=== PATIENT | male | born 1960 | race Caucasian/White ===

== ENCOUNTER 2020-03-10 07:41 | Outpatient (CLI) | payer OTHER, SELFPAY ==
[2020-03-10 08:15] LABS: Basophils % 0.6 %; Eosinophils # 0.2 10^3/uL (0.0-0.8); Eosinophils % 2.2 %; Hematocrit 43.8 % (42.0-52.0); Lymphocytes # 1.6 10^3/uL (0.8-4.8); Lymphocytes % 23.9 %; Mean Corpuscular HGB Conc 29.7 g/dL (30.0-36.0); Mean Corpuscular Hemoglobin 25.2 pg (28.0-34.0); Mean Platelet Volume 10.6 fL (7.4-10.4); Monocytes # 0.6 10^3/uL (0.2-0.9); Monocytes % 9.2 %; Neutrophils # 4.35 10^3/uL (1.8-7.7); Neutrophils % 63.5 %; Nucleated Red Blood Cells % 0 %; Platelet Count 223 10^3/cmm (130-400); Red Blood Count 5.15 10^6/uL (4.1-5.3); Red Cell Distribution Width 14.9 % (12.1-15.1); White Blood Count 6.9 10^3/uL (4.0-10.0)
[2020-03-10 08:55] LABS: Alanine Aminotransferase 33 U/L (0-41); Albumin Level 4.3 g/dL (3.5-5.2); Alkaline Phosphatase 93 IU/L (40-130); Anion Gap 12.2 (5-19); Aspartate Amino Transferase 27 U/L (0-40); Blood Urea Nitrogen 9 mg/dL (8-23); Calcium 9.3 mg/dL (8.5-10.5); Carbon Dioxide 26 mmol/L (22-29); Chloride 100 mmol/L (98-107); Globulin 2.9 g/dL (1.3-4.6); Glomerular Filtration Rate 98.3 mL/min (90-130); Glucose 134 mg/dL (65-115); Osmolality Calculated 276 mOsm/kg (285-295); Potassium 4.2 mmol/L (3.5-5.1); Sodium 134 mmol/L (136-145); Total Bilirubin 0.3 mg/dL (0.15-1.2); Total Protein 7.2 g/dL (6.6-8.7)
--- NOTE | 2020-03-11 07:52 | ONC FU_ITS ---
Dr. Badillo Patient Follow-Up Note Patient: Alvarez Badillo Unit #: [id number]: 1960 Dicatated By: Caleb Badillo M.D.Date of Visit:Mar 10, 2020 Onc Med Follow-up/Prog Note Chief Complaint: Elevated blood count. 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 In August 2018 he had a regularly scheduled follow-up visit with Dr. Mendez. His laboratory studies from 08/27/2018 showed significantly elevated hemoglobin at 19.8 g with hematocrit elevated at 58.4%. His white blood cell count was normal at 8400 and the platelet count was normal at 180,000. His chemistry studies showed significantly elevated total and LDL cholesterol levels at 268 mg/dL and 195 mg/dL respectively. Renal function was normal with creatinine 0.83 mg/dL. I had seen him initially on 09/19/2018. His CBC showed significantly elevated hemoglobin at 19.0 g with hematocrit 55.7%. The white blood cell count was 7900 and the platelet count was 167,000. His comprehensive metabolic profile was unremarkable. His erythropoietin level was in the low-normal range at 4.8 mIU/mL. The JAK2 V617F and the JAK2 exon 12 mutations were not detected. The findings were consistent with secondary polycythemia, though was uncertain what extent the elevated blood count may been due to the smoking/lung disease or to decreased plasma volume. However, with that degree of elevation, he did start a phlebotomy regimen. He was then seen for a follow-up visit on 01/27/2019. At that point his hemoglobin was down to 15.6 g with hematocrit 44.9%, and I had recommended that he just continue on observation/expectant management. During this time he also had been undergoing cardiac evaluation for hypertrophic obstructive cardiomyopathy. He ultimately underwent surgery for it at [facility] in July 2019. His other medical illnesses include hypertension, hyperlipidemia, GERD, and obstructive sleep apnea. He has a significant smoking history, which includes smoking for a total of 49 years and previously up to 3 packs of cigarettes daily or more. He had cut down, and he quit smoking as of November 2018. INTERIM HISTORY: He has been feeling pretty good generally. He still gets short of breath, and his activity tolerance remains limited. However, he has had significant improvement since his heart surgery in July. His ECOG score is 1. His appetite is the same. He has not had fever. He had been having night sweating on a regular basis, but that recently stopped. He has occasional cough associated with episodic itchy throat and voice change. He still has been having some muscle pain in the chest area since the surgery. He otherwise does not complain of chest pain. He has no GI complaints other than his omeprazole does not seem to be working as well as it used to. Bladder function remains adequate, he does report having nocturia. He has some arthritis pain in his hands and wrists, and he also has back pain. He has some numbness in his right hand. Medications: amLODIPine Besylate 1 Tablet (of 5 mg) Oral every am, Aspirin 1 Tablet (of 81 mg) Oral daily, Cholecalciferol 1 Tablet (of 2000 Units) Oral daily, Losartan Potassium 1 Tablet (of 100 mg) Oral at bedtime, Metoprolol Succinate ER 1 Tablet (of 100 mg) Tablet SR 24 HR Oral every am, Omeprazole 1 Capsule (of 20 mg) Capsule Delayed Release Oral daily Allergies: Lisinopril, Lovastatin, and Simvastatin. Review of Systems: Constitutional - He has had some improvement in his energy and activity tolerance since his heart surgery. His appetite is good and weight is up 11 pounds from last visit. No fevers. He was having night sweats up until a few weeks ago. This has since improved. ECOG score is 1, ENMT - He has seasonal allergies. He has a persistent runny nose. No mouth sores. No sore throat or difficulty swallowing, but he has occasional episodes of his throat getting itchy with associated voice change, Hematologic/Lymphatic - No abnormal bruising or bleeding, Respiratory - He still has shortness of breath, but his breathing has been better since the surgery. He has cough with the itchy throat episodes. He still has some pleuritic pain following his surgery. No hemoptysis, Cardiovascular - No angina pain. No palpitations. He had a cardiac surgery back in July, Gastrointestinal - No nausea or vomiting. His acid reflux has not been as well controlled with the omeprazole. No diarrhea or constipation. No blood in the stool or black stools, Genitourinary (M) - No dysuria or hematuria. He has urinary frequency at night. No urgency or incontinence, Musculoskeletal - He has some joint pain in the hands and he has some arthritis in his back, Integumentary - No skin complications, Neurologic - No headache or dizziness. He has intermittent numbness in his right hand. No other focal neurologic symptoms, Psychiatric - No anxiety or depression. No insomnia. Vital Signs: Performed on Mar 10, 2020 09:30 Height - 71.00 in Weight - 260.4 lbs (HIGH) BSA - 2.36 sq.m BMI - 36.32 (HIGH) Temperature - 98.3 F (LOW) Pulse - 69 /min Respiration - 24 /min BP - 140/90 mm(hg) O2 Sat - 97 % Pain - 0 Physical Examination: Constitutional - He looks pretty good generally, Eyes - Sclerae nonicteric. Conjunctivae clear, ENMT - No lesions noted in the oral cavity, Hematologic/Lymphatic - No cervical, clavicular, or axillary adenopathy, Respiratory - Lungs are clear with diminished air movement bilaterally, Cardiovascular - Heart tones are distant. The rhythm appears regular. There is a II/ systolic murmur. There is no gallop or rub noted, Abdomen - Distended. Liver and spleen are not enlarged. There is no abdominal mass or ascites noted and there is no inguinal adenopathy, Extremities - No edema, Neurologic - No focal neurologic deficits noted. Lab/Imaging: Test performed on Mar 10, 2020 07:55 Sodium 134 mmol/L Potassium 4.2 mmol/L Chloride 100 mmol/L CO2 26 mmol/L Anion Gap 12.2 BUN 9 mg/dL Creatinine 0.8 mg/dL Cr Clearance (Est) 162.00 mL/min eGFR 98.3 mL/min Glucose 134 mg/dL Calcium 9.3 mg/dL Protein, Total 7.2 g/dL Albumin 4.3 g/dL Globulin 2.9 g/dL Bilirubin, Total 0.3 mg/dL ALT (SGPT) 33 U/L AST (SGOT) 27 U/L Alkaline Phosphatase 93 IU/L WBC 6.9 10 3/uL RBC 5.15 10 6/uL HGB 13.0 g/dL HCT 43.8 % MCV 85.0 fL MCH 25.2 pg MCHC 29.7 g/dL RDW 14.9 % Platelet Count 223 10 3/cmm MPV 10.6 fL Neutrophils 4.35 10 3/uL Lymphocytes 1.6 10 3/uL Monocytes 0.6 10 3/uL Eosinophils 0.2 10 3/uL Basophils 0.0 10 3/uL Neutrophil % 63.5 % Lymphocyte % 23.9 % Monocyte % 9.2 % Eosinophil % 2.2 % Basophils % 0.6 % NRBC % 0 % Impression: 1. Patient with significantly elevated hemoglobin/hematocrit levels. His laboratory studies appear consistent with secondary polycythemia, as his clonal studies were negative. 2. He has been found to have hypertrophic obstructive cardiomyopathy. His other medical illnesses include: 3. Hypertension. 4. Hyperlipidemia. 5. GERD. 6. Obstructive sleep apnea. 7. By clinical evaluation he likely does have some component of COPD. 8. Nicotine dependence (cigarettes). He initially began on a phlebotomy program, and his blood counts came down to acceptable levels. During that time, he completed cardiac evaluation for the hypertrophic obstructive cardiomyopathy, and he ultimately underwent surgery for it at [facility] in July 2019. He has had significant improvement in his performance status since the surgery, and his hemoglobin/hematocrit levels are now in normal range. As such, it does appear likely that his cardiac disease was a contributing factor to the secondary polycythemia. Plan: He can be followed on observation/expectant management. At this point he will continue his regular follow-up with Dr. Mendez at the [place]. I will plan to see him again only as needed. Signed By: Caleb Badillo M.D. <<Signature on File>>
== END 2020-03-10 07:42 | disposition home or self-care (01) ==
LOC: ONCMED 07:46
PROVIDERS: PCP Emergency Medicine Emergency Medical Services; Visit Provider Internal Medicine Medical Oncology
DX: D75.1 Secondary polycythemia (principal); I10 Essential (primary) hypertension; E78.5 Hyperlipidemia, unspecified; K21.9 Gastro-esophageal reflux disease without esophagitis; G47.33 Obstructive sleep apnea (adult) (pediatric); J44.9 Chronic obstructive pulmonary disease, unspecified; F17.210 Nicotine dependence, cigarettes, uncomplicated
CPT/HCPCS: 80053; 85025; G0463

== ENCOUNTER 2023-08-22 08:58 | Outpatient (CLI) | payer OTHER, SELFPAY ==
--- NOTE | 2023-08-22 09:03 | USCV_ITS ---
Justino Alvarez Age: 63 Gender: M : 1960 Exam Date: 08/22/2023 09:13 Ordering Phys: Jayy Mendez DO Technologist: RODRIGO [place]am Location: [facility] [place] [facility] [place] Indication: AAA SCREENING HISTORY: Diameter (cm) AP x Transverse x Length Velocity (cm/s) Waveform Prox Aorta: 2.47 x 2.93 x 83.00 Triphasic Mid Aorta: 2.01 x 2.36 x 85.10 Triphasic Distal Aorta: 2.18 x 2.17 x 53.10 Triphasic Right Iliac Prox: 0.92 x 1.06 x 94.50 Triphasic Left Iliac Prox: 0.92 x 1.27 x 104.20 Triphasic Stent Prox Landing x x Aneurysmal Sac Max x x Lt Lat Sac Dim Rt Lat Sac Dim Stent Dist Landing x x Right Iliac Stent x x Left Iliac Stent x x Right Renal Art Left Renal Art FINDINGS: Comparison: none available. No evidence of abdominal aortic or bilateral iliac aneurysm. Ectatic abdominal aorta with evidence of atherosclerotic plaque noted. CONCLUSIONS No evidence of abdominal aortic or bilateral iliac aneurysm. Dr. Mona Galvan DO (Electronically Signed) Final Date: 22 August 2023 09:35 S
== END 2023-08-22 08:59 | disposition home or self-care (01) ==
LOC: RAD 09:00
PROVIDERS: PCP Emergency Medicine Emergency Medical Services; Visit Provider Emergency Medicine Emergency Medical Services
DX: Z13.6 Encounter for screening for cardiovascular disorders (principal)
CPT/HCPCS: 76706

== ENCOUNTER → 2024-08-14 10:35 | Outpatient (BNVA) | payer OTHER, SELFPAY | PROVIDERS: PCP Emergency Medicine Emergency Medical Services; Visit Provider Student in an Organized Health Care Education/Training Program | DX: K82.9 Disease of gallbladder, unspecified | CPT/HCPCS: 36415; 80053; 85025; 99204 ==

== ENCOUNTER 2024-08-21 07:54 | Outpatient (CLI) | payer OTHER, SELFPAY ==
--- NOTE | 2024-08-21 08:15 | US_ITS ---
WS: [id number] RIGHT UPPER QUADRANT ULTRASOUND HISTORY: gall stones COMPARISON: None available. Liver: 17.3 cm in length. Liver is top normal size. Hepatic steatosis. No mass identified but the ent shailesh liver is not well visualized. Portal Vein: Normal hepatopetal flow with monophasic waveform. Gallbladder: Normally distended gallbladder with numerous large stones. No pericholecystic fluid. CBD: 0.7 cm Pancreas: Completely obscured by bowel gas. Right kidney: 11.2 cm in length. Normal size and echogenicity. No hydronephrosis or mass. Aorta and IVC: Unremarkable abdominal aorta and IVC. No ascites. US/US gall bladder 92574 IMPRESSION: 1. Cholelithiasis without evidence for acute cholecystitis. Numerous large sto linsey are present within the gallbladder. 2. Liver is top normal size with hepatic steatosis.
== END 2024-08-21 07:55 | disposition home or self-care (01) ==
LOC: RAD 07:55
PROVIDERS: PCP Nurse Practitioner; Visit Provider Student in an Organized Health Care Education/Training Program
DX: K80.20 Calculus of gallbladder without cholecystitis without obstruction (principal); K76.0 Fatty (change of) liver, not elsewhere classified
CPT/HCPCS: 76705

== ENCOUNTER → 2024-08-25 11:16 | Outpatient (BNVA) | payer OTHER, SELFPAY | PROVIDERS: PCP Nurse Practitioner; Visit Provider Student in an Organized Health Care Education/Training Program | DX: Z09 Encounter for follow-up examination after completed treatment for conditions other than malignant neoplasm (principal); K80.50 Calculus of bile duct without cholangitis or cholecystitis without obstruction | CPT/HCPCS: 99214 ==

== ENCOUNTER → 2024-09-17 09:55 | Day surgery (SDC) | payer OTHER, SELFPAY ==
[2024-09-17] VITALS (12 sets, daily range): BP systolic 112–142; BP diastolic 63–96; PULSE 56–65; RESP 3–22; TEMP 36.1–36.6; O2SAT 91–96; BMI 30.5
[2024-09-17] MEDS: sodium chloride 0.9% 1,000 ML 30 ML IV (10:26)
--- NOTE | 2024-09-17 10:39 | W.PM.OPSUD ---
Surgery/Procedure H&P Update DATE OF PROCEDURE: September 17, 2024 DATE H&P PERFORMED: 08/25/24 H&P UPDATE INFORMATION: I have reviewed H&P completed within last 30 days, I have examined patient prior to procedure and No changes to prior documentation PLANNED PROCEDURE: Operation Date: 09/17/24 11:35 Proposed Procedures p [place] [address], K80.50(Not Applicable) - Uriel Jordan MD
--- NOTE | 2024-09-17 10:42 | ANES.PREANE2 ---
Pre-Anesthetic Assessment Height/Weight: Height 6 ft Weight 225 lb Temp Pulse Resp BP Pulse Ox O2 Del Method 97.8 F 65 18 125/83 95 Room Air 09/17/24 10:35 09/17/24 10:35 09/17/24 10:35 09/17/24 10:35 09/17/24 10:35 09/17/24 10:36 Preop Diagnosis: Biliary colic Operation Date: 09/17/24 11:35 Proposed Procedures p Laparoscopic [place] [id number], K80.50(Not Applicable) - Uriel Jordan MD Was Beta Sj taken within 24 hours: N/A Was Clonidine taken within 24 hours: N/A Last intake: Intake Last Liquid Date 09/16/24 Last Liquid Time 19:00 Last Solid Date 09/16/24 Last Solid Time 21:00 Social Tobacco and No alcohol Exam alert, oriented x 3, clear to auscultation bilaterally and regular rate & rhythm Airway Submandibular: within normal limits Cervical ROM: within normal limits Mallampati: Class II Comments: Comments: Upper dentures, few missing bottom teeth, denies any loose Anesthetic Plan ASA status: 3 Anesthesia: General Other: No prior issues with anesthesia NPO since yesterday History of hypertension on amlodipine and metoprolol. BB taken today. 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 Plan for GETA Medications/Allergies Home Medications ?Medication ?Instructions ?Recorded ?Confirmed ?Last Taken ?Type aspirin 81 mg tablet,delayed 81 mg PO DAILY 10/22/19 09/16/24 09/16/24 History release (Urban Low Dose Aspirin) metoprolol tartrate 100 mg tablet 100 mg PO DAILY 10/22/19 09/16/24 09/17/24 History omeprazole 20 mg capsule,delayed 20 mg PO DAILY 10/22/19 09/16/24 09/16/24 History release Gardiner 3 2,000 mg PO DAILY 08/25/24 09/16/24 09/16/24 History amlodipine 10 mg tablet 10 mg PO DAILY 08/25/24 09/16/24 09/17/24 History folic acid 1 mg tablet 5 mg PO DAILY 08/25/24 09/16/24 09/16/24 History Allergies Allergy/AdvReac Type Severity Reaction Status Date / Time lisinopril Allergy Unknown cough Verified 09/17/24 10:32 lovastatin Allergy Unknown pain Verified 09/17/24 10:32 simvastatin Allergy Unknown pain Verified 09/17/24 10:32 Current Medications Generic Name Dose Route Start Last Admin Trade Name Freq PRN Reason Stop Dose Admin Sodium Chloride 1,000 mls @ 30 mls/hr 09/17/24 10:15 09/17/24 10:26 Sodium Chloride 0.9% IV 09/18/24 10:14 30 mls/hr .Q24H RANDY Administration PFSH Anesthesia Medical History (Updated 08/25/24 @ 12:00 by Uriel Jordan MD) SOB (shortness of breath) Hypertension GERD (gastroesophageal reflux disease) Polycythemia Hyperlipidemia Hypertrophic obstructive cardiomyopathy Surgical History H/O circumcision Hx of tonsillectomy H/O arthroscopic knee surgery Family History Other Diabetes Hypertension Stroke Social History (Updated 08/25/24 @ 11:29 by Roselyn Renee) Smoking and tobacco/nicotine status: current every day tobacco/nicotine user Alcohol intake: never Substance/Drug Use: never Data Anesthesia Cardiac Studies: No Data to Display
[2024-09-17] MEDS: ceFAZolin 2,000 mg SDV 2000 MG IVP (10:58)
[2024-09-17] MEDS: lidocaine-epi 1% 20 mL INJ 10 ML INJECTION (11:26)
--- NOTE | 2024-09-17 12:15 | P.OP_ITS ---
Operative Report Date of procedure: September 17, 2024 Pre-op diagnosis: Symptomatic cholelithiasis Post-op diagnosis: Chronic cholecystitis Post-op findings: Gallbladder with inflammatory rind Procedure done: Laparoscopic cholecystectomy Implants: N/A Specimens removed/disposition: Gallbladder sent to pathology Pathology: Gallbladder sent to pathology Surgeon: Uriel Jordan MD Brass Wind Instruments Tube Bender: N/A Anesthesia: General Estimated blood loss (mL): 10 Complications: N/A Findings: Chronically inflamed gallbladder with inflammatory Condition: stable Disposition: same day Brief History: 64-year-old male who presented with biliary colic. Discussed risk and benefits and patient agreed to proceed with laparoscopic cholecystectomy possible open. Procedure: I discussed the risks and benefits of laparoscopic cholecystectomy, and obtained consent prior to proceeding to the operating room. SCDs were utilized. Prophylactic antibiotics were administered. General anesthesia was induced. The patient was placed supine, and she was prepped and draped in the usual sterile fashion. Insufflation to 15mmHg was achieved using a Veress needle at Chris's point. A 12mm optiview trocar was placed at the umbilicus under direct visualization. The left upper quadrant was inspected, and no injuries were noted. Two 5mm ports were placed in the right upper quadrant, and a 12mm working port was placed in the epigastrium. The gallbladder was then retracted cephalad through the lateral RUQ port, and the infundibulum grabbed through the medial RUQ port and retracted laterally. The gallbladder was inflammed and thus c onsistent with chronic cholecystitis. It had an inflammatory rind. I proceeded to score the peritoneum over the medial aspect of the gallbladder using a laparoscopic hook with electrocautery. Then the infundibulum was retracted medially in order to score the peritoneum over the lateral aspect of the galbladder. Using a combination of energy and blunt dissection with the [place] and a Kittner dissector, the cystic artery and cystic duct were dissected. I then proceeded to dissect the cystic plate in order to to achieve the critical view of safety. The cystic artery and the cystic duct were clipped three times (leaving two clips on the proximal end of both structures). I then proceeded to dissect the gallbladder off the liver using hook electrocautery. The specimen was placed in an endocatch bag and retrieved from the abdomen through the port on the epigastrium. I then irrigated the gallbladder fossa with 2L of NS to confirm adequate hemostasis and the absence of any bile leaks. The gallbladder fossa was then cauterized again. Prior to ending the laparoscopic portion, I examined the rest of the abdomen and did not find any abnormalities or injuries. The abdomen was then desufflated, and the 12mm port at the umbilicus was closed using 0 vicryl on a UR needle after irrigating copiously. Skin was closed using 4-0 monocryl and surgical glue. The patient woke up from anesthesia and t ransferred to PACU without any complications.
[2024-09-17] MEDS: HYDROMORPHONE HCL 0.5 MG/0.5 ML INJ (12:29)
--- NOTE | 2024-09-17 12:37 | PC.NURSE ---
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
[2024-09-17] MEDS: oxyCODONE 5 mg IR Tab/Cap PO (13:04)
[2024-09-17] MEDS: fentaNYL 50 mcg/mL INJ 2mL IVP (13:09)
--- NOTE | 2024-09-17 14:01 | ANE.PACU2 ---
Inpatient post-anesthesia follow up: Airway intact: Yes Vital signs: Temperature 97.0 F Pulse Rate 60 Respiratory Rate 16 Blood Pressure 120/66 Pulse Oximetry 92 Oxygen Delivery Me thod Nasal Cannula Oxygen Flow Rate 3 Fraction of Inspir ed Oxygen Hydration adequate: Yes Nausea and vomiting: No Pain level: 2 Mental status: Baseline
[2024-09-17 15:47] LABS: Hepatitis A Antibody IgM Non-Reactive (Nonreactive); Hepatitis B Core AB, Total Non-Reactive (Nonreactive); Hepatitis B Surface AB 6.2 (11.5-1000); Hepatitis B Surface Antigen Non-Reactive (Nonreactive); Hepatitis C Virus Antibody Non-Reactive (Nonreactive)
[2024-09-17 15:59] LABS: HIV 1 & 2 Antibody Non-Reactive (Non-Reactiv); HIV 1 & 2 Antigen Non-Reactive (Non-Reactiv)
== END | disposition home or self-care (01) ==
PROVIDERS: Family Medicine; PCP Nurse Practitioner; Visit Provider Student in an Organized Health Care Education/Training Program
PROC: 0FT44ZZ Resection of Gallbladder, Percutaneous Endoscopic Approach (ICD-10-PCS; CPT 47562; principal; 2024-09-17 11:35)
DX: K80.10 Calculus of gallbladder with chronic cholecystitis without obstruction (principal); I10 Essential (primary) hypertension; F17.200 Nicotine dependence, unspecified, uncomplicated; E78.5 Hyperlipidemia, unspecified
CPT/HCPCS: 47562; 86705; 86706; 86709; 86803; 87340; 87806; 88304; A4216; J0690; J1171; J2250; J2704; J2710; J3010; J3490; J7030

== ENCOUNTER 2024-09-23 11:43 | Emergency (ER) | payer OTHER, MEDICARE, SELFPAY ==
[2024-09-23 12:05] VITALS: RESP 36; TEMP 36; BMI 30.7
--- NOTE | 2024-09-23 12:14 | CT_ITS ---
WS: [id number] CT ABDOMEN AND PELVIS WITH CONTRAST HISTORY: abd pain, recent cholecystectomy. TECHNIQUE: Imaging performed of the abdomen and pelvis with IV contrast. Single phase imaging of the abdomen. Coronal and sagittal reformats are submitted. All CT scans at [facility] use at least one of these dose optimization techniques: automated exposure control; mA and/or kV adjustment per patient size (includes targeted exams where dose is matched to clinical indication); or iterative reconstruction. IV CONTRAST: Omnipaque 350; 100 mL IV. Oral contrast: No DLP: 1184.66 mGy.cm COMPARISON: None available. Lower thorax: Lung bases are clear although hyperexpanded. Circumferential intramural air throughout the visualized lower esophagus. There are additional small foci of the air external to the esophagus distally into the LEFT. Esophageal pneumatosis contiguous into the stomach. Stomach is markedly diste nded with fluid and air. Heart is normal size. Liver/biliary system: Liver is normal size. There is portal venous air predominantly in the LEFT lobe. Main portal vein is difficult to visualize and small caliber. There is significant amount of air in the central mesentery within the superior mesenteric vein smaller branches. No intrahepatic duct dil atation. Tiny focus measuring 11 x 24 mm along the inferior RIGHT lobe of the liver of uncertain etiology. This may be an area hemorrhage. Gallbladder: Gallbladder has been surgically removed. There is a small amount of fluid at the gallbladder bed. Pancreas: Atrophic pancreas. Spleen: Normal size spleen. No mass or infarct. Adrenal glands: Normal. Right kidney: Small caliber, no obstruction. Left kidney: Normal. Aorta: Mild atherosclerosis with no aneurysm. Celiac axis intact. Lymphadenopathy: None. Free fluid: Small amount of free fluid in the pelvis. There is also small amount of free fluid surrounding the liver extending along the paracolic gutter. GI tract: Significant abnormalities noted throughout the GI tract. Pneumatosis in the distal esophagus with extension into the stomach. Marked dilatation of small bowel with fluid and air. Small bowel ischemic changes are also evident. The most concerning small bowel loop is in the RIGHT abdomen. There is probably a significant perforation as there is air extending from the medial surface of the small bowel loop into the venous system. The colon is predominantly collapsed. Abdominal wall: Marked thinning of the abdominal wall musculature. There is mild soft tissue anasarca. Pelvis: Urinary bladder is well distended. Small amount of free fluid in the pelvis. Bones: Unremarkable. CT/CT abdomen pelvis w con* [id number] IMPRESSION: 1. Significant changes of ischemia involving the esophagus, stomach and small bowel. 2. There is significant portal venous air in the LEFT lobe of the liver. Exten sive gas in the SMV. Extensive air in the central abdomen through the smaller t ributaries of the SMV. 3. Free fluid in the abdomen and pelvis. Reactive ascites versus bile leak. Th ere is no well-circumscribed biloma in the gallbladder bed. With the recent his tory of a cholecystectomy this could potentially represent a bile leak. 4. Marked small bowel dilatation with fluid and air. Colon is collapsed. 5. Prior cholecystectomy. There is a tiny amount of fluid in the gallbladder b ed. 6. Additional scattered foci of free air within the peritoneal cavity. Notified Mat House MD at 09/23/2024 1:27 PM.
--- NOTE | 2024-09-23 12:24 | ECG_ITS ---
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
[2024-09-23 12:32] LABS: Basophils # 0.1 10^3/uL (0.0-0.1); Basophils % 0.6 %; Eosinophils # 0.3 10^3/uL (0.0-0.8); Eosinophils % 1.5 %; Hematocrit 55.7 % (37-53); Lymphocytes # 1.2 10^3/uL (0.8-4.8); Lymphocytes % 6.7 %; Mean Corpuscular HGB Conc 33.2 g/dL (30-55); Mean Corpuscular Hemoglobin 30.4 pg (27-33); Mean Corpuscular Volume 91.5 fl (82-101); Mean Platelet Volume 10.8 fL (7.4-10.4); Monocytes # 1.8 10^3/uL (0.2-0.9); Monocytes % 10.6 %; Neutrophils # 13.69 10^3/uL (1.8-7.7); Neutrophils % 79.1 %; Nucleated Red Blood Cells % 0 %; Platelet Count 369 10^3/cmm (157-399); Red Blood Count 6.09 10^6/uL (3.85-5.65); Red Cell Distribution Width 15.1 % (12.1-15.1); White Blood Count 17.32 10^3/uL (3.29-11.43)
[2024-09-23] MEDS: iohexol 350 mg/mL 500 mL Btl (per mL) IV (12:32)
[2024-09-23] MEDS: sodium chloride 0.9% 1,000 ML 999 ML IV ×3 (12:33→13:59)
--- NOTE | 2024-09-23 12:40 | CT_ITS ---
WS: [id number] CT chest wo con [id number] HISTORY: SOB TECHNIQUE: Axial imaging performed through the thorax. Coronal and sagittal reformats are submitted. All CT scans at [facility] use at least one of these dose optimization techniques: automated exposure control; mA and/or kV adjustment per patient size (includes targeted exams where dose is matched to clinical indication); or iterative reconstruction. CONTRAST: Omnipaque 350; 100 mL IV. DLP: 637.48 mGy COMPARISON: None available. Extensive circumferential and near circumferential intramural air throughout a large portion of the esophagus. The esophageal lumen is filled with fluid to above the masood. Intramural air extends into the GE junction. Stomach is markedly dilated with a fluid and air with ischemic changes also. There are additional numerous foci of air along the LEFT lateral esophagus which may be related to an esophageal perforation. There are additional foci of air in the RIGHT lower neck at the level of the clavicle. This may be mediastinal extension of air. Lungs are mildly hyperinflated. No significant pleural effusion. No pneumonia. No adenopathy. Mild atherosclerosis aorta. Upper abdomen: Reidentified is portal venous air. There is fluid adjacent to the liver. There is a small amount of fluid in the gallbladder bed. Recent cholecystectomy. There is mild mesenteric and omental stranding in the RIGHT upper abdomen extending towards the paracolic gutter. Small foci of air in the periphery of the liver, along the anterior and posterior surface. Probably all portal venous air. Osseous structures: Increase in thoracic kyphosis. Mild anterior wedging of several of the vertebral bodies. Prior CABG. CT/CT chest wo con [id number] IMPRESSION: 1. Extensive esophageal intramural air which is most likely due to pneumatosis and ischemia. Numerous foci of air extend LEFT paraesophageal, extraluminal. P ossible perforation site. 2. There is extensive pneumatosis extending from the esophagus into the GE lambert ction and stomach. Extensive gastrointestinal ischemic changes. 3. Stomach is markedly distended with fluid and air. 4. Small amount of free fluid in the gallbladder bed and adjacent to the liver . Sympathetic ascites versus biloma or blood. There is slight increased attenua tion within this free fluid which could be blood or bile. 5. Additional foci of mediastinal air superiorly on the RIGHT at the level of the clavicle.
--- NOTE | 2024-09-23 12:50 | W.ED.ABDPA2 ---
HPI - Abdominal Pain General: Chief Complaint: Abdominal Pain Stated Complaint: gall surgery a couple days, bloating/vomitting Time Seen by Provider: 09/23/24 12:14 Source: patient Mode of arrival: ambulatory Limitations: no limitations History of Present Illness: 64-year-old male who had a cholecystectomy done last week he states that overnight he start having increased pain throughout the night along with vomiting he also has abdominal distention. He is quite distended here is having some hypotension states has had some weakness. Denies any fevers. He denies any worse improving factors. Associated Symptoms: Reports nausea and vomiting; Denies chills, diarrhea and fever(s) Related Data Home Medications ?Medication ?Instructions ?Recorded ?Confirmed aspirin 81 mg tablet,delayed 81 mg PO DAILY 10/22/19 09/23/24 release (Urban Low Dose Aspirin) metoprolol tartrate 100 mg tablet 100 mg PO DAILY 10/22/19 09/23/24 omeprazole 20 mg capsule,delayed 20 mg PO DAILY 10/22/19 09/23/24 release Theriot 3 2,000 mg PO DAILY 08/25/24 09/23/24 amlodipine 10 mg tablet 10 mg PO DAILY 08/25/24 09/23/24 folic acid 1 mg tablet 5 mg PO DAILY 08/25/24 09/23/24 oxycodone 5 mg tablet 5 mg PO Q6H 09/23/24 09/23/24 Previous Rx's ?Medication ?Instructions ?Recorded atropine 1 % eye drops 4 drp sublingual Q4H PRN 09/23/24 Secretions #5 mL diphenhydramine HCl 25 mg tablet 25 mg PO Q4H PRN Allergic Reaction 09/23/24 #5 tabs hydroxyzine HCl 25 mg tablet 25 mg PO TID PRN Itching #5 tabs 09/23/24 lorazepam 1 mg tablet (Ativan) 1 mg PO Q6H PRN nausea and 09/23/24 vomiting #20 tabs lorazepam 2 mg/mL oral concentrate 2 mg sublingual Q4H PRN 09/23/24 Anxiety/Seizure #30 mL morphine concentrate 100 mg/5 mL 20 mg sublingual DIRECTED PRN 09/23/24 (20 mg/mL) oral solution Pain/SOB 14 days #30 mL ondansetron 4 mg disintegrating 4 mg PO Q6H PRN nausea and 09/23/24 tablet vomiting #14 tabs ondansetron 4 mg disintegrating 4 mg translingual Q4H PRN Nausea 09/23/24 tablet #5 tabs oxycodone-acetaminophen 10 mg-325 1 tab PO Q8H PRN pain #20 tabs 09/23/24 mg tablet (Percocet) Allergies Allergy/AdvReac Type Severity Reaction Status Date / Time lisinopril Allergy Unknown cough Verified 09/23/24 12:08 lovastatin Allergy Unknown pain Verified 09/23/24 12:08 simvastatin Allergy Unknown pain Verified 09/23/24 12:08 Review of Systems Const: Denies: fever(s), chills, body aches or change in appetite ENMT: Denies: throat pain or dental pain Card: Denies: chest pain Resp: Denies: dyspnea GI: Reports: abdominal pain, nausea and vomiting; Denies: diarrhea Musc: Denies: neck pain or back pain Skin/Breast: Denies: rash Neuro: Denies: headache(s) PFS ED PFSH: Medical History (Updated 09/23/24 @ 14:40 by Bulmaro Pruitt MD) SOB (shortness of breath) Hypertension GERD (gastroesophageal reflux disease) Polycythemia Hyperlipidemia Hypertrophic obstructive cardiomyopathy Surgical History H/O circumcision Hx of tonsillectomy H/O arthroscopic knee surgery Family History Other Diabetes Hypertension Stroke Social History Smoking and tobacco/nicotine status: current every day tobacco/nicotine user Alcohol intake: never Substance/Drug Use: never Physical Exam Const: COMMON NORMALS: patient oriented x3 GENERAL APPEARANCE: in distress and ill appearing HENMT: COMMON NORMALS: normocephalic and atraumatic HEAD & SCALP: normocephalic and atraumatic Neck/C-Spine: COMMON NORMALS: full ROM and supple Chest: COMMONS NORMALS: normal inspection of the chest and normal palpation of entire chest wall Resp: COMMON NORMALS: normal respiratory effort, No retractions, No use of accessory muscles and clear to auscultation bilaterally AUSCULTATION: clear to auscultation bilaterally Cardio: COMMON NORMALS: regular rhythm and No murmurs present (Cardio) RATE: tachycardic RHYTHM: regular rhythm GI: OTHER: Abdomen is distended and tender to touch Extremity: COMMON NORMALS: normal to inspection and full ROM Neuro: COMMON NORMALS: patient oriented x3, moves all extremities and no focal motor deficits Psych: COMMON NORMALS: mental status grossly normal, Normal thought process present and cooperative THOUGHT PROCESS: Normal thought process present Skin: COMMON NORMALS: no rashes or lesions noted and no wounds GENERAL SKIN EXAM: no rashes or lesions noted Course Vital Signs: Vital signs: Vital Signs Temperature 96.8 F L 09/23/24 12:05 Respiratory Rate 36 H 09/23/24 12:05 Blood Pressure 106/80 09/23/24 14:05 MDM - Abdominal Pain Medical Decision Making Patient presents with abdominal pain and was found to have ischemic bowel patient was seen by surgeon in the ER who had offered him surgery patient's situation was agreeable had spoke to him as well he had made the decision he did not want surgery 1 to be comfort care he wanted to go home. Did set him up on pain meds for home discharge at this time with his . Medical Records I reviewed the patient's medical records. Lab Data I reviewed the patient's lab results. 09/23/24 12:20 09/23/24 12:20 Labs/Radiology: Radiology Impressions Abdomen/Pelvis CT 09/23/24 12:14 IMPRESSION: 1. Significant changes of ischemia involving the esophagus, stomach and small bowel. 2. There is significant portal venous air in the LEFT lobe of the liver. Extensive gas in the SMV. Extensive air in the central abdomen through the smaller tributaries of the SMV. 3. Free fluid in the abdomen and pelvis. Reactive ascites versus bile leak. There is no well-circumscribed biloma in the gallbladder bed. With the recent history of a cholecystectomy this could potentially represent a bile leak. 4. Marked small bowel dilatation with fluid and air. Colon is collapsed. 5. Prior cholecystectomy. There is a tiny amount of fluid in the gallbladder bed. 6. Additional scattered foci of free air within the peritoneal cavity. Notified Mat House MD at 09/23/2024 1:[address] 09/23/24 12:40 IMPRESSION: 1. Extensive esophageal intramural air which is most likely due to pneumatosis and ischemia. Numerous foci of air extend LEFT paraesophageal, extraluminal. Possible perforation site. 2. There is extensive pneumatosis extending from the esophagus into the GE junction and stomach. Extensive gastrointestinal ischemic changes. 3. Stomach is markedly distended with fluid and air. 4. Small amount of free fluid in the gallbladder bed and adjacent to the liver. Sympathetic ascites versus biloma or blood. There is slight increased attenuation within this free fluid which could be blood or bile. 5. Additional foci of mediastinal air superiorly on the RIGHT at the level of the clavicle. Chest X-Ray 09/23/24 13:51 IMPRESSION: 1. NG tube extending into the stomach but the tip is out of the [id number]. 2. No acute cardiopulmonary finding. Laboratory Results WBC 17.32 10^3/uL (3.29-11.43) H 09/23/24 12:20 RBC 6.09 10^6/uL (3.85-5.65) H 09/23/24 12:20 Hgb 18.50 g/dL (11.27-16.99) H 09/23/24 12:20 Hct 55.7 % (37-53) H 09/23/24 12:20 MCV 91.5 fl (82-101) 09/23/24 12:20 MCH 30.4 pg (27-33) 09/23/24 12:20 MCHC 33.2 g/dL (30-55) 09/23/24 12:20 RDW 15.1 % (12.1-15.1) 09/23/24 12:20 Plt Count 369 10^3/cmm (157-399) 09/23/24 12:20 MPV 10.8 fL (7.4-10.4) H 09/23/24 12:20 Neut % (Auto) 79.1 % 09/23/24 12:20 Lymph % (Auto) 6.7 % 09/23/24 12:20 Haralson % (Auto) 10.6 % 09/23/24 12:20 Eos % (Auto) 1.5 % 09/23/24 12:20 Baso % (Auto) 0.6 % 09/23/24 12:20 Neut # (Auto) 13.69 10^3/uL (1.8-7.7) H 09/23/24 12:20 Lymph # (Auto) 1.2 10^3/uL (0.8-4.8) 09/23/24 12:20 Haralson # (Auto) 1.8 10^3/uL (0.2-0.9) H 09/23/24 12:20 Eos # (Auto) 0.3 10^3/uL (0.0-0.8) 09/23/24 12:20 Baso # (Auto) 0.1 10^3/uL (0.0-0.1) 09/23/24 12:20 Nucleated RBC % (auto) 0 % 09/23/24 12:20 Nucleated RBCs # 0.0 /100WBC 09/23/24 12:20 Specimen Type Arterial 09/23/24 13:09 Sample Site Radial, right 09/23/24 13:09 ABG pH 7.42 (7.35-7.45) 09/23/24 13:09 ABG pCO2 34.8 mmHg (35-45) L 09/23/24 13:09 ABG pO2 60.1 mmHg (80.0-100.0) L 09/23/24 13:09 ABG PO2/FiO2 Ratio 286 09/23/24 13:09 ABG HCO3 22.5 mmol/L (22-26) 09/23/24 13:09 ABG O2 Saturation 89.3 09/23/24 13:09 ABG Base Excess -1.3 mmol/L (-2.0-2.0) 09/23/24 13:09 Luis Test Pos 09/23/24 13:09 A-a O2 Gradient 6.2 mmHg (5-10) 09/23/24 13:09 Hematocrit 50.3 % (42-52) 09/23/24 13:09 Hgb O2 Saturation 86.5 % (95-100) L 09/23/24 13:09 Carboxyhemoglobin 2.1 %THgb (0.4-20.1) 09/23/24 13:09 Methemoglobin 0.9 % (0.4-1.5) 09/23/24 13:09 Total Hemoglobin 16.4 g/dL (14-18) 09/23/24 13:09 Sodium 126.0 mmol/L (131-143) L 09/23/24 13:09 Potassium 3.0 mmol/L (3.5-5.0) L 09/23/24 13:09 Glucose 112.0 mg/dL (70-115) 09/23/24 13:09 Ionized Calcium 1.1 mmol/L (1.1-1.4) 09/23/24 13:09 O2 Delivery Device Room air 09/23/24 13:09 FiO2 21.0 % 09/23/24 13:09 Necktie Operator Pockets And Pieces ID [place] 09/23/24 13:09 Sodium 131 mmol/L (136-145) L 09/23/24 12:20 Potassium 4.0 mmol/L (3.5-5.1) 09/23/24 12:20 Chloride 77 mmol/L (98-107) L 09/23/24 12:20 Carbon Dioxide 24 mmol/L (22-29) 09/23/24 12:20 Anion Gap 34.0 (5-19) H 09/23/24 12:20 BUN 42 mg/dL (8-23) H 09/23/24 12:20 Creatinine 1.8 mg/dL (0.7-1.2) H 09/23/24 12:20 GFR Calculation 37.9 mL/min (90-130) L 09/23/24 12:20 Glucose 184 mg/dL (65-115) H 09/23/24 12:20 Calculated Osmolality 287 mOsm/kg (285-295) 09/23/24 12:20 Lactic Acid 17.4 mmol/L (0.5-2.2) H* 09/23/24 12:20 Calcium 11.2 mg/dL (8.5-10.5) H 09/23/24 12:20 Total Bilirubin 6.1 mg/dL (0.15-1.2) H 09/23/24 12:20 AST 55 U/L (0-40) H 09/23/24 12:20 ALT 57 U/L (0-41) H 09/23/24 12:20 Alkaline Phosphatase 205 U/L (40-130) H 09/23/24 12:20 Total Protein 8.2 g/dL (6.6-8.7) 09/23/24 12:20 Albumin 3.8 g/dL (3.5-5.2) 09/23/24 12:20 Globulin 4.4 g/dL (1.3-4.6) 09/23/24 12:20 Lipase 118 U/L (13-60) H 09/23/24 12:20 All radiology interpretation(s) finalized by discharge Critical Care Time Critical Care Time: Critical Care Time: Yes Total Critical Care Time: 50 Attestation: The high probability of a clinically significant, sudden or life threatening deterioration of the patient's gi system(s) required my full and direct attention, intervention and personal management. The critical care time is as shown. This time is in addition to time spent performing any reported procedures but includes the following: [x] Data and vital sign review and interpretation [x] Patient assessment, examination and intervention [x] Documentation [x] Medication orders and management Discharge Plan Discharge Patient Disposition: Home Clinical Impression: Ischemia, bowel Condition: Stable Prescriptions: New lorazepam [Ativan] 1 mg tablet 1 mg PO Q6H PRN (Reason: nausea and vomiting) Qty: 20 0RF ondansetron 4 mg tablet,disintegrating 4 mg PO Q6H PRN (Reason: nausea and vomiting) Qty: 14 0RF oxycodone-acetaminophen [Percocet] 10-325 mg tablet 1 tab PO Q8H PRN (Reason: pain) Qty: 20 0RF morphine concentrate 100 mg/5 mL (20 mg/mL) Solution 20 mg sublingual DIRECTED MDD N/A PRN (Reason: Pain/SOB) 14 Days Qty: 30 0RF Rx Instructions: 0.25ml-1ml q1H PRN may increase to 0.5ml-1ml Q1H PRN diphenhydramine HCl 25 mg Tablet 25 mg PO Q4H PRN (Reason: Allergic Reaction) Qty: 5 0RF Rx Instructions: Take one tablet by mouth every 4 hours as needed for allergic reaction hydroxyzine HCl 25 mg Tablet 25 mg PO TID PRN (Reason: Itching) Qty: 5 0RF Rx Instructions: Take 1 tablet by mouth as needed three times a day for itching atropine 1 % Drops 4 drp sublingual Q4H PRN (Reason: Secretions) Qty: 5 0RF Rx Instructions: 4 drops SL q 4 hours PRN for terminal congestion/excessive secretions. ondansetron 4 mg Tablet,Disintegrating 4 mg translingual Q4H PRN (Reason: Nausea) Qty: 5 0RF Rx Instructions: Dissolve 1 tablet under tongue every 4 hours PRN for nausea lorazepam 2 mg/mL Concentrate 2 mg sublingual Q4H PRN (Reason: Anxiety/Seizure) Qty: 30 0RF Rx Instructions: 0.25ml-1ml q4H PRN Anxiety/Seizure Start 0.25ml may increase to 0.5ml-1ml q4H No Action omeprazole 20 mg capsule,delayed release(DR/EC) 20 mg PO DAILY aspirin [Urban Low Dose Aspirin] 81 mg tablet,delayed release (DR/EC) 81 mg PO DAILY metoprolol tartrate 100 mg tablet 100 mg PO DAILY amlodipine 10 mg tablet 10 mg PO DAILY Theriot 3 2,000 mg 2,000 mg PO DAILY folic acid 1 mg tablet 5 mg PO DAILY oxycodone 5 mg tablet 5 mg PO Q6H Discharge Orders: Discharge ED (Routine); Ordered 09/23/24 Ordered By: Mat House Referrals: Anne-Marie Barth FNP [Primary Care Provider] - Discharge Diet: Advance as tolerated Discharge Activity: Resume usual activity Patient Instructions: Abdominal Pain (ED), Opioid Safety, Pain Management Print Language: Telugu Coding Level of Care Code ED Certified Medical Asst for Pricila Sotelo
[2024-09-23 12:52] LABS: Alanine Aminotransferase 57 U/L (0-41); Albumin Level 3.8 g/dL (3.5-5.2); Alkaline Phosphatase 205 U/L (40-130); Aspartate Amino Transferase 55 U/L (0-40); Blood Urea Nitrogen 42 mg/dL (8-23); Calcium 11.2 mg/dL (8.5-10.5); Carbon Dioxide 24 mmol/L (22-29); Chloride 77 mmol/L (98-107); Creatinine Clr Calc Pharmacy 48.5888; Globulin 4.4 g/dL (1.3-4.6); Glomerular Filtration Rate 37.9 mL/min (90-130); Glucose 184 mg/dL (65-115); Lipase 118 U/L (13-60); Osmolality Calculated 287 mOsm/kg (285-295); Sodium 131 mmol/L (136-145); Total Bilirubin 6.1 mg/dL (0.15-1.2); Total Protein 8.2 g/dL (6.6-8.7)
[2024-09-23 13:13] LABS: Lactic Sepsis W/Reflex 17.4 mmol/L (0.5-2.2)
[2024-09-23 13:20] LABS: ABG PCO2 34.8 mmHg (35-45); ABG PH Result 7.42 (7.35-7.45); Alveolar-Arterial Oxygen Gradi 6.2 mmHg (5-10); Arterial Blood Gas Hematocrit 50.3 % (42-52); Base Excess ABG -1.3 mmol/L (-2.0-2.0); Blood Gas Allen Test Pos; Blood Gas Operator Identificat WALCI; Blood Gas Sample Site Radial, right; Blood Gas Sample Type Arterial; Carboxyhemoglobin 2.1 %THgb (0.4-20.1); HCO3 ABG 22.5 mmol/L (22-26); HGB O2 Sat 86.5 % (95-100); Ionized Calcium Level - ABG 1.1 mmol/L (1.1-1.4); Methemoglobin 0.9 % (0.4-1.5); Oxygen Device ROOM AIR; Oxygen Saturation ABG 89.3; PO2 ABG 60.1 mmHg (80.0-100.0); PO2 FiO2 Ratio Arterial Blood 286; Total Hemoglobin 16.4 g/dL (14-18)
--- NOTE | 2024-09-23 13:51 | XR_ITS ---
WS: [id number] Exam: XR chest 1V portable [id number] Date/Time of Exam: 09/23/2024 1:56 PM Reason For Exam: ng tube placement No priors. An NG tube is noted in the midline and extends below the diaphragm within the stomach. The lungs are clear. Normal cardiomediastinal silhouette. Signs of median sternotomy. Bony structures are unremarkable. XR/XR chest 1V portable [id number] IMPRESSION: 1. NG tube extending into the stomach but the tip is out of the [id number]. 2. No acute cardiopulmonary finding.
[2024-09-23] MEDS: VANCOMYCIN ADD-Vantage 1,000 MG in 0.9% NaCl ADD-Vantage 250 ML 250 MG IV (13:53)
--- NOTE | 2024-09-23 13:57 | ANES.PREANE2 ---
Pre-Anesthetic Assessment Height/Weight: Height 5 ft 11 in Weight 220 lb Temp Resp 96.8 F L 36 H 09/23/24 12:05 09/23/24 12:05 Preop Diagnosis: Ischemic bowel Was Beta Sj taken within 24 hours: Yes Was Clonidine taken within 24 hours: N/A Social Tobacco and No alcohol Exam alert, oriented x 3, clear to auscultation bilaterally and regular rate & rhythm Airway Submandibular: within normal limits Cervical ROM: within normal limits Mallampati: Class II Dentition: full Comments: Comments: Few missing bottom teeth, denies any loose Anesthetic Plan ASA status: 4E Anesthesia: General Other: No prior issues with anesthesia Patient just had a laparoscopic cholecystectomy on 09/17/2024 under [place] without issues Patient presented to the ER this morning and appears to have ischemic bowel NPO since yesterday History of hypertension on amlodipine and metoprolol. BB taken today. Current smoker, does not use any inhalers Labs reviewed from today. Leukocytosis noted. NA 131, K+ 4.0. 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 Plan for GETA Medications/Allergies Home Medications ?Medication ?Instructions ?Recorded ?Confirmed ?Last Taken ?Type aspirin 81 mg tablet,delayed 81 mg PO DAILY 10/22/19 09/23/24 09/23/24 History release (Urban Low Dose Aspirin) metoprolol tartrate 100 mg tablet 100 mg PO DAILY 10/22/19 09/23/24 09/23/24 History omeprazole 20 mg capsule,delayed 20 mg PO DAILY 10/22/19 09/23/24 09/23/24 History release Leoma 3 2,000 mg PO DAILY 08/25/24 09/23/24 09/23/24 History amlodipine 10 mg tablet 10 mg PO DAILY 08/25/24 09/23/24 09/23/24 History folic acid 1 mg tablet 5 mg PO DAILY 08/25/24 09/23/24 09/23/24 History oxycodone 5 mg tablet 5 mg PO Q6H 09/23/24 09/23/24 09/22/24 History Allergies Allergy/AdvReac Type Severity Reaction Status Date / Time lisinopril Allergy Unknown cough Verified 09/23/24 12:08 lovastatin Allergy Unknown pain Verified 09/23/24 12:08 simvastatin Allergy Unknown pain Verified 09/23/24 12:08 Current Medications Generic Name Dose Route Start Last Admin Trade Name Jonatan PRN Reason Stop Dose Admin Sodium Chloride 1,000 mls @ 999 mls/hr 09/23/24 12:15 09/23/24 13:20 Sodium Chloride 0.9% IV 09/23/24 14:15 999 mls/hr .Q1H1M RANDY Administration PFSH Anesthesia Medical History SOB (shortness of breath) Hypertension GERD (gastroesophageal reflux disease) Polycythemia Hyperlipidemia Hypertrophic obstructive cardiomyopathy Surgical History H/O circumcision Hx of tonsillectomy H/O arthroscopic knee surgery Family History Other Diabetes Hypertension Stroke Social History Smoking and tobacco/nicotine status: current every day tobacco/nicotine user Alcohol intake: never Substance/Drug Use: never Data Anesthesia 09/23/24 12:20 09/23/24 12:20 Short CBC 09/23/24 Range/Units 12:20 WBC 17.32 H (3.29-11.43) 10^3/uL Hgb 18.50 H (11.27-16.99) g/dL Hct 55.7 H (37-53) % MCV 91.5 (82-101) fl Plt Count 369 (157-399) 10^3/cmm Neut % (Auto) 79.1 % Neut # (Auto) 13.69 H (1.8-7.7) 10^3/uL BMP 09/23/24 12:20 Sodium 131 L Potassium 4.0 Chloride 77 L Carbon Dioxide 24 BUN 42 H Creatinine 1.8 H Glucose 184 H Calcium 11.2 H Liver Function 09/23/24 Range/Units 12:20 Total Bilirubin 6.1 H (0.15-1.2) mg/dL AST 55 H (0-40) U/L ALT 57 H (0-41) U/L Alkaline Phosphatase 205 H (40-130) U/L Albumin 3.8 (3.5-5.2) g/dL ABG 09/23/24 13:09 Specimen Type Arterial Sample Site Radial, right ABG pH 7.42 ABG pCO2 34.8 L ABG pO2 60.1 L ABG PO2/FiO2 Ratio 286 ABG HCO3 22.5 ABG O2 Saturation 89.3 ABG Base Excess -1.3 A-a O2 Gradient 6.2 O2 Delivery Device Room air FiO2 21.0 Microbiology 09/23/24 13:19 Blood Culture - Preliminary Blood SPECIMEN COLLECTED 09/23/24 13:24 Blood Culture - Preliminary Blood SPECIMEN COLLECTED Cardiac Studies: No Data to Display
[2024-09-23] MEDS: piperacillin-tazobactam 3.375 GM in sodium chloride 0.9% (plus) 50 ML IV (13:58)
[2024-09-23 14:05] VITALS: BP 106/80
[2024-09-23 14:15] LABS: Reflex Lactate Order REFLEX LACTIC ORDERD
--- NOTE | 2024-09-23 14:26 | PM.CONSULT ---
Providers/Reason For Consult Consulting Physician/Specialty*: General Surgery Reason for Consult*: Mesenteric ischemia with perforation Primary Care Provider: TYRELL Bradshaw History of Present Illness History of Present Illness Alvarez Badillo is a 64 year old male Who underwent laparoscopic cholecystectomy on September 17, 2024. Since then he has been having abdominal pain that he attributed to surgical intervention, the pain radiated to the shoulders and upper chest. Over the last 2 to 3 days the pain has become extensive abdominal distention develop and over the last 24 hours pain has become unbearable as well as abdominal distention has become significant. He was also feeling very weak and dizzy. He presented to the emergency room where a CT scan was done. CT scan shows evidence of significant esophageal gastric and intestinal ischemia with possible areas of perforation in the esophagus and in the small bowel. There is ascites with hyperattenuation, there is a fluid in the gallbladder bed. There is portal air as well as superior mesenteric vein air. I was consulted for these findings. Review of Systems General: Reports: 10 or more systems reviewed and unremarkable except in HPI and below Medications/Allergies Home Medications ?Medication ?Instructions ?Recorded ?Confirmed ?Last Taken ?Type aspirin 81 mg tablet,delayed 81 mg PO DAILY 10/22/19 09/23/24 09/23/24 History release (Urban Low Dose Aspirin) metoprolol tartrate 100 mg tablet 100 mg PO DAILY 10/22/19 09/23/24 09/23/24 History omeprazole 20 mg capsule,delayed 20 mg PO DAILY 10/22/19 09/23/24 09/23/24 History release Agar 3 2,000 mg PO DAILY 08/25/24 09/23/24 09/23/24 History amlodipine 10 mg tablet 10 mg PO DAILY 08/25/24 09/23/24 09/23/24 History folic acid 1 mg tablet 5 mg PO DAILY 08/25/24 09/23/24 09/23/24 History atropine 1 % eye drops 4 drp sublingual Q4H PRN 09/23/24 Unknown Rx Secretions #5 mL diphenhydramine HCl 25 mg tablet 25 mg PO Q4H PRN Allergic Reaction 09/23/24 Unknown Rx #5 tabs hydroxyzine HCl 25 mg tablet 25 mg PO TID PRN Itching #5 tabs 09/23/24 Unknown Rx lorazepam 1 mg tablet (Ativan) 1 mg PO Q6H PRN nausea and 09/23/24 Unknown Rx vomiting #20 tabs lorazepam 2 mg/mL oral concentrate 2 mg sublingual Q4H PRN 09/23/24 Unknown Rx Anxiety/Seizure #30 mL morphine concentrate 100 mg/5 mL 20 mg sublingual DIRECTED PRN 09/23/24 Unknown Rx (20 mg/mL) oral solution Pain/SOB 14 days #30 mL ondansetron 4 mg disintegrating 4 mg PO Q6H PRN nausea and 09/23/24 Unknown Rx tablet vomiting #14 tabs ondansetron 4 mg disintegrating 4 mg translingual Q4H PRN Nausea 09/23/24 Unknown Rx tablet #5 tabs oxycodone 5 mg tablet 5 mg PO Q6H 09/23/24 09/23/24 09/22/24 History oxycodone-acetaminophen 10 mg-325 1 tab PO Q8H PRN pain #20 tabs 09/23/24 Unknown Rx mg tablet (Percocet) Allergies Allergy/AdvReac Type Severity Reaction Status Date / Time lisinopril Allergy Unknown cough Verified 09/23/24 12:08 lovastatin Allergy Unknown pain Verified 09/23/24 12:08 simvastatin Allergy Unknown pain Verified 09/23/24 12:08 PFSH Acute PFSH: Medical History (Updated 09/23/24 @ 14:40 by Bulmaro Pruitt MD) SOB (shortness of breath) Hypertension GERD (gastroesophageal reflux disease) Polycythemia Hyperlipidemia Hypertrophic obstructive cardiomyopathy Surgical History H/O circumcision Hx of tonsillectomy H/O arthroscopic knee surgery Family History Other Diabetes Hypertension Stroke Social History Smoking and tobacco/nicotine status: current every day tobacco/nicotine user Alcohol intake: never Substance/Drug Use: never Vitals/I&O/Wt Last Vital Signs Temp 96.8 F L 09/23/24 12:05 Resp 36 H 09/23/24 12:05 BP 106/80 09/23/24 14:05 02/17/25 02/18/25 02/18/25 22:59 06:59 14:59 Intake Total 782.55 / 782.55 Balance 782.55 / 782.55 Weight last 48 hrs Weight 220 lb Physical Exam Narrative: Patient is ill-appearing, he is hypotensive, he has severe abdominal distention. There is yellowish and yellowish discoloration of the abdomen and petechial changes in the anterior abdomen the abdomen is peritonitic especially in the right hemiabdomen. Data 09/23/24 12:20 09/23/24 12:20 Micro: Microbiology 09/23/24 13:19 Blood Culture - Preliminary Blood SPECIMEN COLLECTED 09/23/24 13:24 Blood Culture - Preliminary Blood SPECIMEN COLLECTED A&P Assessment and plan (1) Ischemia, bowel: (2) Peritonitis: (3) Sepsis: Plan 64-year-old male with multiple comorbidities who presents to the hospital with acute gastrointestinal ischemia. Acute intestinal ischemia appears to involve the majority of the small bowel, the duodenum the stomach and esophagus. There is changes suggestive of ischemia and necrosis at this level. An NG tube was placed in the emergency department yielding sanguinous fluid which is compatible with intestinal necrosis. Patient is hypotensive and tachycardic. He is ill-appearing. At this moment I do not have a possible cause for such an extensive degree of ischemia, but unfortunately this findings are likely incompatible with life and at this point likely ireversible. I had extensive discussion with the patient and the family member regarding the findings, I have explained that his likelihood of survival at this point is minimal. The only thing I can offer from the surgical standpoint will be to take him to the operating room for a laparotomy and to resect any nonviable bowel, unfortunately imaging findings are highly suspicious for necrosis of the duodenum and the stomach, which can not be solved by any surgical intervention. I also discussed the possibility of intestinal perforation as well as small likelihood of esophageal perforation noted in imaging. I have informed the patient and family member that unfortunately I think his pathology most likely will lead to even with our best efforts. There is also significant concern that if we go to the operating room he will decompensate after the laparotomy is made due to sudden decompression of the peritoneum causing hemodynamic collapse as his abdomen is very tense. I explained that the only additional option is medical management and comfort care. After extensive discussion patient and family member have decided against surgical intervention and they do not wish to remain in the hospital, they do understand that the natural course of this disease will lead to in the next 24 to 48 hours and will prefer to transition to their home to allow the patient to pass away comfortably. This decision has been discussed also with the emergency medicine team and they will facilitate his transition home. PDMP PDMP Reviewed: Not Reviewed Coding Level of Care Code 72374 Diagnoses Ischemia, bowel K55.9 Peritonitis K65.9 Sepsis A41.9
--- NOTE | 2024-09-23 14:47 | PC.SOCIAL ---
Hospice referrals faxed to [facility] and [facility] hospice at this time.
--- NOTE | 2024-09-23 15:29 | PC.SOCIAL ---
Discharge orders faxed to [facility] at this time. Tamar with [facility] accepts and is sending someone to admit tonight. Physical address provided to Tamar of [address] [facility] [address]. Comfort meds sent with patient at discharge.
--- NOTE | 2024-09-23 15:32 | PC.NURSE ---
PT REQUESTED VITALS MACHINE BE DISCONNECTED DUE TO PT POOR PROGNOSIS.
[2024-09-24 05:15] LABS: Acinetobacter baumannii Not Detected (NOT DETECT); Bacteroides fragilis Not Detected (NOT DETECT); CTX-M Not Detected (NOT DETECT); Citrobacter Not Detected (NOT DETECT); Cronobacter sakazakii Not Detected (NOT DETECT); Enterobacter cloacae complex Not Detected (NOT DETECT); Enterobacter non cloacae Not Detected (NOT DETECT); Fusobacterium necrophorum Not Detected (NOT DETECT); Fusobacterium nucleatum Not Detected (NOT DETECT); Haemophilus influenzae Not Detected (NOT DETECT); IMP Resistance Gene Not Detected (NOT DETECT); KPC Resistance Gene Not Detected (NOT DETECT); Klebsiella pneumoniae group Not Detected (NOT DETECT); Morganella morganii Not Detected (NOT DETECT); NDM Resistance Gene Not Detected (NOT DETECT); Neisseria meningitidis Not Detected (NOT DETECT); OXA Resistance Gene Not Detected (NOT DETECT); Pan Candida Not Detected (NOT DETECT); Pan Gram-Positive Not Detected (NOT DETECT); Proteus mirabilis Not Detected (NOT DETECT); Pseudomonas aeruginosa Not Detected (NOT DETECT); Salmonella Not Detected (NOT DETECT); Serratia Not Detected (NOT DETECT); Serratia marcescens Not Detected (NOT DETECT); Stenotrophomonas maltophilia Not Detected (NOT DETECT); VIM Resistance Gene Not Detected (NOT DETECT)
== END 2024-09-23 15:15 | disposition home or self-care (01) ==
LOC: ER 14:05 → OR 14:11 → ER 14:21
PROVIDERS: Emergency Provider Emergency Medicine; PCP Nurse Practitioner
DX: K55.9 Vascular disorder of intestine, unspecified (principal); Z72.0 Tobacco use; E78.5 Hyperlipidemia, unspecified; I10 Essential (primary) hypertension; Z98.890 Other specified postprocedural states
CPT/HCPCS: 36415; 36600; 71045; 71250; 74177; 80051; 80053; 82330; 82805; 83605; 83690; 85025; 87040; 87150; 87205; 93005; 96361; 96374; 99285; J0330; J2250; J2543; J2704; J3010; J3370; J3490; J7030; J7050